=== PATIENT | female | born 1985 ===

== ENCOUNTER 2023-11-09 10:00 | Inpatient (IN) | payer SELFPAY ==
[~2023-11-09] VITALS: Ht 162.6 cm; Wt 52.6 kg
[2023-11-09] MEDS ORDERED: HALOPERIDOL 5 MG TABLET PO PRN (11:15)
[2023-11-09] MEDS ORDERED: LORazepam 2 MG TABLET PO PRN (11:15)
[2023-11-09] MEDS ORDERED: ZOLPIDEM TARTRATE 10 MG TABLET PO PRN (11:15)
[2023-11-09 16:34] VITALS: RESP 20
[2023-11-09] MEDS ORDERED: ALBUTEROL SULFATE HFA 90 MCG/PUFF 8 GM INHALER IH PRN (19:30)
[2023-11-09] MEDS ORDERED: BENZOCAINE/MENTHOL LOZENGE PO PRN (19:30)
[2023-11-09] MEDS ORDERED: MAG HYDROX/ALUMINUM HYD/SIMETH ES 30 ML SUSPENSION UDCUP PO PRN (19:30)
[2023-11-09] MEDS ORDERED: PETROLATUM,WHITE 28 GM JELLY TP PRN (19:30)
[2023-11-09] MEDS ORDERED: ONDANSETRON HCL 4 MG TABLET PO PRN (19:30)
[2023-11-09] MEDS ORDERED: MAGNESIUM HYDROXIDE SUSPENSION 30 ML UDCUP PO PRN (19:30)
[2023-11-09] MEDS ORDERED: LOPERAMIDE HCL 2 MG CAPSULE PO PRN (19:30)
[2023-11-09] MEDS ORDERED: IBUPROFEN 600 MG TABLET PO PRN (19:30)
[2023-11-09] MEDS ORDERED: ACETAMINOPHEN 325 MG TABLET PO PRN (19:30)
[2023-11-09] MEDS ORDERED: OMEPRAZOLE 20 MG CAPSULE PO PRN (19:30)
[2023-11-09] MEDS ORDERED: BACITRACIN 28 GM OINTMENT TP PRN (19:30)
[2023-11-09] MEDS ORDERED: CloNIDine HCL 0.1 MG TABLET PO PRN (19:30)
[2023-11-09] MEDS ORDERED: DOCUSATE SODIUM 100 MG CAPSULE PO PRN (19:30)
[2023-11-09 21:15] VITALS: BP 98/64; PULSE 88; RESP 18; TEMP 98.1; O2SAT 100
[2023-11-10 08:32] VITALS: BP 100/62; PULSE 93; RESP 16; TEMP 97.4; O2SAT 99
[2023-11-10] MEDS ORDERED: RisperiDONE 0.5 MG TABLET PO SCH (21:00)
[2023-11-11 08:29] VITALS: BP 108/65; PULSE 80; RESP 16; TEMP 97.9; O2SAT 100
[2023-11-11] MEDS: OLANZapine 7.5 MG TABLET PO SCH (20:50)
[2023-11-11 21:18] VITALS: BP 115/65; PULSE 70; RESP 18; TEMP 98
[2023-11-12 11:45] VITALS: BP 106/62; PULSE 84; RESP 17; TEMP 98.5; O2SAT 99
== END 2023-11-12 19:45 | disposition home or self-care (01) | DRG 885 ==
LOC: EMS 10:00 → B3A 13:58
PROVIDERS: ADMIT Psychiatry & Neurology Psychiatry; ATTEND Psychiatry & Neurology Psychiatry
DX: F20.9 Schizophrenia, unspecified (principal); F41.9 Anxiety disorder, unspecified; G47.00 Insomnia, unspecified; K59.00 Constipation, unspecified
CPT/HCPCS: Z7610